=== PATIENT | male | born 1950 | race Caucasian/White ===

== ENCOUNTER → 2018-06-23 | Outpatient (CLI) | payer MEDICARE | END | disposition home or self-care (01) | LOC: PCVCCLINIC 15:16 | PROVIDERS: ATTEND Internal Medicine Cardiovascular Disease | DX: E78.5 Hyperlipidemia, unspecified (principal); R06.02 Shortness of breath; R94.31 Abnormal electrocardiogram [ECG] [EKG]; I47.1 Supraventricular tachycardia; Z87.891 Personal history of nicotine dependence | CPT/HCPCS: 36415; 80061; 93005; G0463 ==

== ENCOUNTER → 2018-08-04 | Outpatient (CLI) | payer MEDICARE ==
--- NOTE | 2018-08-07 10:14 | PCVCIMAG ---
APPROVED REPORT Study performed: 08/04/2018 15:47:49 Exam: Stress Echocardiogram Indication: sob,abn ekg,fatigue Patient Location: Echo lab Stress Nurse: Sara Caballero RN Room #: 2 Status: routine Ht: 6 ft 2 in HR: 84 bpm BP: 136/84 mmHg Rhythm: NSR Medical History Medical History: Hyperlipidemia, Cardiac Risk Factors: Hyperlipidemia Previous Cardiac Procedures: none Procedure The patient underwent an Exercise Stress Test using the Omer Protocol. Blood pressure, heart rate, and EKG were monitored. An Echocardiogram was performed by oil heat technician in four stages in quad fashion. At peak stress, four selected images were obtained and placed side by side with resting images for comparison. Stress Test Details Stress Test: Exercise stress testing was performed using a Omer protocol. HR Resting HR: 84 bpmMax Heart Rate (APMHR): 151 bpm Max HR Achieved: 154 bpmTarget HR (85% APMHR): 128 bpm % of APMHR: 101 Recovery HR: 106 bpm HR response to stress: Normal HR response to stress BP Resting BP: 136/84 mmHg Max BP: 146/78 mmHg Recovery BP: 122/84 mmHg BP response to stress: Normal blood pressure response to stress. ECG Resting ECG: Incomplete RBBB Stress ECG: Incomplete RBBB ST Change: Non-ischemic Arrhythmia: rare PVCs Recovery ECG: Sinus Rhythm, incomplete RBBB Recovery ST Change: Non-ischemic Recovery Arrhythmia: None Clinical Reason for Termination: Maximal effort Stress Symptoms: Dyspnea, Fatigue Exercise duration: 9 min 34 sec Highest Stage Achieved: Stage 4: 4.2 mph at 16% grade. Exercise capacity: 11.9 METs Overall Exercise Capacity for Age: Good Scale: Active Angina Score: None Stress ECG Conclusion The patient exercised according to the OMER protocol for 9:34 mins; achieving a work level of 11.9 METS. The resting heart rate of 84 bpm alba to a maximum heart rate of 157 bpm. This value represent 103% of the maximal, age-predicted heart rate. The resting blood pressure of 136/84 mmHg, alba to a maximum blood pressure of 146/78 mmHg. The exercise test was stopped due to fatigue and dyspnea. Pre-Stress Echo The resting Echocardiogram showed normal left ventricular contractility with an estimated Ejection Fraction of about 55-60%. Normal wall motion in all segments on baseline images. Post-Stress Echo The stress Echocardiogram showed normal left ventricular contractility with an estimated Ejection Fraction of about 65-70%. Normal augmentation of wall motion in all segments on post stress images. Clinical No clinical or ECG evidence for ischemia. Conclusion Clinical Response: Non-ischemic Exercise Capacity: Average Stress ECG Response: Non-ischemic Stress Echo Images: Non-ischemic No clinical, EKG or echocardiographic evidence for ischemia. No echocardiographic evidence for exercise induced ischemia. Normal stress echocardiogram with maximal exercise stress. <Conclusion> No clinical, EKG or echocardiographic evidence for ischemia. No echocardiographic evidence for exercise induced ischemia. Normal stress echocardiogram with maximal exercise stress.
== END | disposition home or self-care (01) ==
LOC: PCVCIMAG 15:36
PROVIDERS: ATTEND Internal Medicine Cardiovascular Disease
DX: R06.02 Shortness of breath (principal); R94.31 Abnormal electrocardiogram [ECG] [EKG]; R53.83 Other fatigue; E78.00 Pure hypercholesterolemia, unspecified
CPT/HCPCS: 36415; 80061; 93325; 93351